=== PATIENT | male | born 1970 | race Caucasian/White ===

== ENCOUNTER 2020-12-31 12:37 | Emergency (ER) | payer BC, OTHER ==
[~2020-12-31] VITALS: Ht 177.8 cm; Wt 133.8 kg
[~2020-12-31 12:37] MED LIST: AMARYL4 MG; HUMALOG100 UNIT/1; IBUPROFEN 200200 M1; LANTUS100 UNIT/M; LISINOPRIL5 MG; MOBIC15 MG PO; NORCO 5-325 TA1 EACH PO; NORFLEX100 MG PO; PROAIR HFA8.5 GM INH; TOUJEO SOL300 UNIT/1 IM; TUSSIONEX PENN115 ML PO; WELCHOL3.75 GM; [UNRECOGNIZED DRUG - REMARK] PO
[2020-12-31] MEDS ORDERED: ENTRESTO 97 MG1 EACH PO (12:51)
[2020-12-31] MEDS ORDERED: JARDIANCE10 MG PO (12:51)
[2020-12-31] MEDS ORDERED: OZEMPIC1 MG/0.71 SUBQ (12:52)
[2020-12-31] MEDS ORDERED: ELIQUIS5 M1 PO (12:52)
[2020-12-31 13:17] LABS: ABSOLUTE NEUTROPHILS 4.6 thou/uL (1.4-8.2); BASOPHILS 1.4 % (0.0-2.0); EOSINOPHILS 2.8 % (0.0-3.0); HEMOGLOBIN 14.3 gm/dL (14.0-18.0); LYMPHOCYTES 27.3 % (24.0-44.0); MCH 29.8 pg (26.0-34.0); MCHC 33.3 g/dL (28.0-37.0); MCV 89.6 fL (80.0-100.0); MONOCYTES 9.2 % (1.0-8.0); PLATELET COUNT 338 thou/uL (150-400); POLYS 59.3 % (36.0-66.0); RDW 14.1 % (10.5-14.5); WBC 7.8 thou/uL (4.0-11.0)
[2020-12-31 13:25] LABS: ANION GAP 11 mmol/L (7-16); BUN 24 mg/dL (7-18); CALCIUM 8.6 mg/dL (8.5-10.1); CHLORIDE 107 mmol/L (98-107); CO2 25 mmol/L (21-32); CREATININE 1.2 mg/dL (0.7-1.3); GLUCOSE 141 mg/dL (74-106); POTASSIUM 4.8 mmol/L (3.5-5.1); SODIUM 143 mmol/L (136-145)
[2020-12-31 13:31] LABS: APTT 28.5 Seconds (24.5-32.8); D-DIMER 0.45 ug/mLFEU (0.19-0.50); PROTIME 10.9 Seconds (10.5-12.1)
[2020-12-31 13:35] LABS: ALBUMIN 3.6 g/dL (3.4-5.0); LIPASE 249 U/L (73-393); SGOT 19 U/L (15-37); SGPT 31 U/L (30-65); TOTAL BILIRUBIN 0.4 mg/dL (0.2-1.0); TOTAL PROTEIN 7.1 g/dL (6.4-8.2); TROPONIN-I <0.06 ng/mL (<0.06)
[2020-12-31 14:10] VITALS: BP 130/64
--- NOTE | 2020-12-31 16:43 | EKG ---
[address] [address] [place] [address] ELECTROCARDIOGRAM REPORT Name: CAMRYN LEDBETTER Room #: [facility]P [id number] Admission: 12/31/20 Attend Phys: Discharge: 12/31/20 Date of : 66 Report #: [id number] [facility] ED Test Date: 2020-12-31 Test Time: 12:41:04 Pat Name: CAMRYN LEDBETTER Department: Room: Gender: M [place]: : 1970 Requested By: Darryn Thompson Order Number: [id number] MD: Martinez Ambrosio Measurements Intervals [place] Rate: 84 P: 70 [place]: 157 QRS: -31 QRSD: 103 T: 61 QT: 376 QTc: 445 Interpretive Statements Sinus rhythm Inferior infarct, old Compared to ECG 08/10/2017 04:05:53 Inferior Q waves are now present Sinus tachycardia no longer present Electronically Signed On 12-31-2020 16:43:43 CDT by Martinez Ambrosio [email or web address] <ELECTRONICALLY SIGNED> By: Martinez Ambrosio MD, [facility] 12/31/20 1643 1241 1241 Martinez Ambrosio MD, FACC /EPI
== END 2020-12-31 14:10 | disposition home or self-care (01) ==
LOC: ER 12:37
PROVIDERS: Emergency Medicine
DX: R07.89 Other chest pain (principal); I11.0 Hypertensive heart disease with heart failure; I50.9 Heart failure, unspecified; E11.9 Type 2 diabetes mellitus without complications; Z87.891 Personal history of nicotine dependence